=== PATIENT | female | born 1990 | race Caucasian/White ===

== ENCOUNTER → 2016-12-31 | Outpatient (CLI) | payer OTHER ==
[2017-01-03 02:01] LABS: CHLAMYDIA TRACH RNA*** NOT DETECTED (NOT DETECTED); GC (NEIS GONORRHOEAE)RNA** NOT DETECTED (NOT DETECTED)
== END | disposition home or self-care (01) ==
LOC: C.LAB1850 10:46
PROVIDERS: ATTEND Physician Assistant
DX: Z11.3 Encounter for screening for infections with a predominantly sexual mode of transmission (principal)

== ENCOUNTER → 2016-12-31 | Outpatient (CLI) | payer OTHER | END | disposition home or self-care (01) | LOC: C.PAPS 14:24 | PROVIDERS: ATTEND Physician Assistant | DX: Z12.4 Encounter for screening for malignant neoplasm of cervix (principal); R87.610 Atypical squamous cells of undetermined significance on cytologic smear of cervix (ASC-US) ==

== ENCOUNTER → 2017-01-14 | Outpatient (CLI) | payer OTHER ==
--- NOTE | 2017-01-14 13:45 | MAMMOGRAPHY REPORT ---
ULTRASOUND OF LEFT BREAST: 01/14/2017 CLINICAL HISTORY: 26-year-old woman presents with a few month history of pain in the superior left br east and also possible lumpiness. No skin erythema or nipple discharge. No family history of breast cancer. COMPARISON: No prior exams were available for comparison. FINDINGS: Targeted ultrasound was performed in the area of pain and lumpiness pointed out by the gabrielle ent, in the 12:00 through 2:00 axes of the left breast. In the 12:00 left breast, 3 cm from the nipp le, there is an isoechoic to slightly hypoechoic circumscribed solid mass measuring 1.6 x 1.2 x 1.3 c m. Although this most likely represents a fibroadenoma, definitive characterization with an ultrasou nd-guided core biopsy is recommended to exclude phyllodes. Throughout the remainder of the left upper outer quadrant, no other discrete solid or cystic mass was identified. At the patient's request, additional ultrasound was performed throughout both breasts to exclude any other possible masses. Throughout the remainder of the left breast and throughout the right breast, no other discrete solid or cystic mass was identified. IMPRESSION: ACR BI-RADS CATEGORY 4: SUSPICIOUS - FOLLOW-UP RECOMMENDED 1. There is a 1.6 cm solid mass in the 12:00 left breast, correlating with the area of pain and palp able lumps pointed out by the patient's. Definitive characterization with an ultrasound-guided core needle biopsy is recommended. 2. No other discrete solid or cystic mass is seen throughout the remainder of each breast during tabitha l-time ultrasound scanning. These results and recommendations were discussed with the patient at the time of the exam. She tenta tively scheduled the left breast biopsy prior to leaving our department. Kim Young M.D. ay/:01/14/2017 10:41:39 Devil Tender: Sylvie FOSTER)([place]), [facility] letter sent: Abnormal 4/5 BI-RADS Code: ACR BI-RADS Category 4: Suspicious
== END | disposition home or self-care (01) ==
LOC: C.MAMM 09:47
PROVIDERS: ATTEND Physician Assistant
DX: N64.4 Mastodynia (principal); N63.0 Unspecified lump in unspecified breast

== ENCOUNTER → 2017-01-21 | Outpatient (CLI) | payer OTHER ==
--- NOTE | 2017-01-21 11:43 | Discharge Instructions ---
Discharge Instructions Procedure Procedure Date: Jan 21, 2017. Reason for visit: Left Palpable Mass. Discharge Discharge Date: Jan 21, 2017. Discharge Diagnosis: post left breast ultrasound guided core biopsy Medications Restart Stopped Medication(s): ACTIVITY RECOMMENDATIONS: * No lifting, pushing, pulling or exercising the affected side for three days. RETURN TO SCHOOL/WORK: * You may return to work/school after the procedure, but do not perform any strenuous activities for 24 to 48 hours. MEDICATIONS: * Tylenol (two 325 mg) every four to six hours if needed for mild pain (if not allergic to Tylenol). DIET: * Resume previous diet. SPECIAL CARE INSTRUCTIONS: * Keep biopsy site dry for 24 hours. May shower after 24 hours, but do not soak (bathe) incision. * May remove Tegaderm (plastic patch) tomorrow AFTER showering. * Leave the steri-strips on for one week. Allow the steri-strips to fall off by themselves. If not off after one week, you may remove them. You may place a Bandaid crosswise over the strips, if desired. * Apply ice 10 minutes on and 10 minutes off as needed. * Wear a bra at bedtime to sleep more comfortably for 2-3 days. * Your referring physician should have the results after approximately 5 to 7 business days. * Call for unusual bleeding, fever, drainage, etc or if you have any questions call [phone] during normal business hours or after hours call Dr Young, . FOLLOW UP VISIT: Follow-up with Referring Physician as scheduled. Instructions Activity Recommendations: Additional Limitations (see below) Return to School/Work: no limitations Recommended Home Diet: No Limitations Provider Instructions: ACTIVITY RECOMMENDATIONS: * No lifting, pushing, pulling or exercising the affected side for three days. RETURN TO SCHOOL/WORK: * You may return to work/school after the procedure, but do not perform any strenuous activities for 24 to 48 hours. MEDICATIONS: * Tylenol (two 325 mg) every four to six hours if needed for mild pain (if not allergic to Tylenol). DIET: * Resume previous diet. SPECIAL CARE INSTRUCTIONS: * Keep biopsy site dry for 24 hours. May shower after 24 hours, but do not soak (bathe) incision. * May remove Tegaderm (plastic patch) tomorrow AFTER showering. * Leave the steri-strips on for one week. Allow the steri-strips to fall off by themselves. If not off after one week, you may remove them. You may place a Bandaid crosswise over the strips, if desired. * Apply ice 10 minutes on and 10 minutes off as needed. * Wear a bra at bedtime to sleep more comfortably for 2-3 days. * Your referring physician should have the results after approximately 5 to 7 business days. * Call for unusual bleeding, fever, drainage, etc or if you have any questions call [phone] during normal business hours or after hours call Dr Young, . FOLLOW UP VISIT: Follow-up with Referring Physician as scheduled. Brian Patel Recommendations: Call your doctor if: * Temperature above 101 degrees * Pain not relieved by pain medicine ordered * There is increased drainage or redness from any incision * You have any unanswered questions or concerns. Your Doctors Instructions noted above were prepared by provider Kim Young. Patient Signature Section: Patient Instructions Signature Page Laura Santoyo Patient (or Guardian) Signature/Date: I have read and understand the instructions given to me by my caregivers. Caregiver/RN/Doctor Signature/Date: The above-named patient and/or guardian has received patient instructions on this date. + Original Patient Signature Page (only) stays with chart. Please make copy for patient.
--- NOTE | 2017-01-21 15:15 | MAMMOGRAPHY REPORT ---
ULTRASOUND GUIDED BIOPSY LEFT BREAST: 01/21/2017 CLINICAL HISTORY: Solid palpable 1.6 cm circumscribed mass in the 12:00 left breast. Patient present s for ultrasound-guided core biopsy. COMPARISON: Comparison is made to exam dated: 01/14/2017 ultrasound - [facility]. PATIENT CONSENT: The procedure, risks and benefits were discussed with the patient and informed conse nt was obtained both verbally and in writing. Specific risks to this procedure include: bleeding, in fection, puncture of adjacent structure, nontarget biopsy, sampling error, pain, metal allergy and me dication reaction. PROCEDURE DESCRIPTION: A time out was performed and the left breast was agreed as the site of biopsy. The skin was prepped and draped in the usual sterile fashion. The solid palpable 1.6 cm mass in the 12:00 left breast was chosen as the target for biopsy. Subcutaneous and intraparenchymal 1% buffered lidocaine, with and without epinephrine, was administered as local anesthesia. A skin incision was ma de. Through the incision, 4 samples were taken with a 14 gauge Achieve biopsy device. A ribbon shape d metallic marker was placed at the biopsy site. Hemostasis was achieved after manual compression. Th e patient tolerated the procedure well and there was no immediate complication. The samples were sen t to the pathology department in an appropriately labeled container. A single left CC 2-D view was obtained for documentation of clip deployment. A new ribbon-shaped bio psy marker clip is seen in the 12:00 to 1:00 left breast, middle depth. No significant post biopsy h ematoma is identified. IMPRESSION: ULTRASOUND GUIDED BIOPSY Status post ultrasound guided core biopsy of a solid palpable 1.6 cm mass in the 12:00 left breast, w ith biopsy marker clip placed at the site. The patient will receive notification of the biopsy results from her referring physician. Kim Young M.D. ay/:01/21/2017 12:34:08 Content Development Manager: Agueda FOSTER)(M), [facility]
--- NOTE | 2017-01-21 15:18 | MAMMOGRAPHY REPORT ---
UNILATERAL LEFT DIGITAL DIAGNOSTIC MAMMOGRAM TOMOSYNTHESIS: 01/21/2017 CLINICAL HISTORY: Status post ultrasound-guided core biopsy of a solid palpable 1.6 cm mass in the 12 :00 left breast. Please refer to the report from left breast ultrasound guided core biopsy performed at the same time for full detail. IMPRESSION: POST PROCEDURE IMAGING FOR MARKER PLACEMENT Please refer to the report from left breast ultrasound guided core biopsy performed at the same time for full detail. Approximately 10% of breast cancers are not detected with mammography. A negative mammographic report should not delay biopsy if a clinically suggestive mass is present. Kim Young M.D. ay/:01/21/2017 11:45:05 Dredge Boat Engineer: Agueda THOMAS(R)(M), [facility] BI-RADS Code: Post Procedure Imaging For Marker Placement
== END | disposition home or self-care (01) ==
LOC: C.MAMM 10:03
PROVIDERS: ATTEND Physician Assistant
DX: D24.2 Benign neoplasm of left breast (principal)

== ENCOUNTER → 2017-02-24 | Outpatient (CLI) | payer OTHER | END | disposition home or self-care (01) | LOC: C.LABSPEC 14:15 | PROVIDERS: ATTEND Physician Assistant | DX: N89.8 Other specified noninflammatory disorders of vagina (principal) ==

== ENCOUNTER → 2017-02-26 | Outpatient (CLI) | payer OTHER | END | disposition home or self-care (01) | LOC: C.PATHSPEC 13:17 | PROVIDERS: ATTEND Obstetrics & Gynecology | DX: R87.612 Low grade squamous intraepithelial lesion on cytologic smear of cervix (LGSIL) (principal); N72 Inflammatory disease of cervix uteri ==